=== PATIENT | female | born 1950 | race Caucasian/White ===

== ENCOUNTER 2017-07-21 10:23 | Emergency (ER) | payer MEDICARE, BC, MEDICAID ==
[~2017-07-21] VITALS: Ht 5367.7 cm; Wt 90.0 kg
[2017-07-21 10:32] VITALS: BP 115/73
[2017-07-21] MEDS ORDERED: HYDROcodone/acetaminophen 5mg/325mg tablet PO ONE (11:35)
[2017-07-21] MEDS ORDERED: HYDR-569 PO (11:35)
== END 2017-07-21 13:18 | disposition home or self-care (01) ==
LOC: ER 10:23
DX: S86.002A Unspecified injury of left Achilles tendon, initial encounter (principal); Z88.0 Allergy status to penicillin; W18.30XA Fall on same level, unspecified, initial encounter; Y93.89 Activity, other specified; Y92.89 Other specified places as the place of occurrence of the external cause; Y99.8 Other external cause status
CPT/HCPCS: 73610; 99284; A6449

== ENCOUNTER 2021-07-18 10:44 | Emergency (ER) | payer MEDICARE, MEDICAID ==
[~2021-07-18] VITALS: Ht 162.6 cm; Wt 67.4 kg
[~2021-07-18 10:44] MED LIST: HYDR-4383 PO
[2021-07-18 13:08] VITALS: BP 146/89
--- NOTE | 2021-07-18 13:29 | NUR ---
PER LAB, PT IS REFUSING ORDERED BLOOD DRAW. ATTEMPTED TO EXPLAIN THAT THE BLOOD DRAW IS PART OF THE PT EVALUATION, PT IS ARGUMENTITIVE AND STATES THAT SHE NEVER HAD TO HAVE BLOOD DRAWN FOR AN ENEMA. PROVIDER HAS BEEN NOTIFIED Addendum: 07/18/21 at 1340 by GABRIELLA PT CHANGED MIND AND HAS ALLOWED LAB WORK TO BE DRAWN ORDERED BEFORE PROVIDER COULD BE NOTIFIED.
== END 2021-07-18 15:37 | disposition home or self-care (01) ==
LOC: ER 10:44
DX: K59.00 Constipation, unspecified (principal); E78.00 Pure hypercholesterolemia, unspecified; Z90.710 Acquired absence of both cervix and uterus; Z88.0 Allergy status to penicillin; Z79.899 Other long term (current) drug therapy
CPT/HCPCS: 99282; 99283

== ENCOUNTER 2022-02-07 07:53 | Observation (INO) | payer BC, MEDICAID ==
[~2022-02-07] VITALS: Ht 162.6 cm; Wt 79.2 kg
[2022-02-07] MEDS ORDERED: LIDOcaine 1% 30ml preserv. free vial IJ ONE (09:00)
[2022-02-07] MEDS ORDERED: TETanus/Pertussis (Acell)/Diphther VAC/PF (Tdap-Adult) 0.5ml syringe IMVAC ONE (09:00)
[2022-02-07 09:13] LABS: BASOPHILS % (AUTO) 0.6 % (0-1); EOSINOPHILS # (AUTO) 0.1 X10'3 (0-0.9); EOSINOPHILS % (AUTO) 2.1 % (0-6); HEMATOCRIT 43.5 % (35.0-45.0); HEMOGLOBIN 14.4 g/dl (12.0-16.0); LYMPHOCYTES # (AUTO) 1.4 X10'3 (1.1-4.8); LYMPHOCYTES % (AUTO) 21.6 % (21-51); MEAN CORPUSCULAR HEMOGLOBIN 30.9 PG (27.0-31.0); MEAN CORPUSCULAR HGB CONC 33.2 g/dL (33.0-36.5); MEAN CORPUSCULAR VOLUME 93.2 FL (78-98); MEAN PLATELET VOLUME 8.2 FL (7.4-10.4); MONOCYTES # (AUTO) 0.3 X10'3 (0-0.9); MONOCYTES % (AUTO) 4.3 % (2-12); NEUTROPHILS # (AUTO) 4.6 X10'3 (1.8-7.7); NEUTROPHILS % (AUTO) 71.4 % (42-75); PLATELET COUNT 185 X10'3 (140-440); RED BLOOD COUNT 4.67 X10'6 (4.20-5.60); RED CELL DISTRIBUTION WIDTH 15.3 % (11.5-14.5); WHITE BLOOD COUNT 6.5 X10'3 (4.5-11.0)
[2022-02-07 09:41] LABS: ALANINE AMINOTRANSFERASE 23 U/L (12-78); ALBUMIN 3.4 G/DL (3.4-5.0); ALBUMIN/GLOBULIN RATIO 0.9 (1.1-1.5); ALKALINE PHOSPHATASE 37 IU/L (46-116); ANION GAP 10 (8-16); BILIRUBIN,TOTAL 0.6 MG/DL (0.1-1.0); BLOOD UREA NITROGEN 8 MG/DL (7-18); CALCIUM 9.5 MG/DL (8.5-10.1); CHLORIDE 105 MMOL/L (99-107); CREATININE 0.73 MG/DL (0.40-0.90); GLUCOSE 96 MG/DL (70-104); SODIUM 140 MMOL/L (135-145); TOTAL CARBON DIOXIDE 25.5 MMOL/L (24-32); TOTAL PROTEIN 7.2 G/DL (6.4-8.2); eGFR 78 ML/MIN
[2022-02-07 10:03] LABS: ASPARTATE AMINO TRANSFERASE 22 U/L (10-37); POTASSIUM 4.7 MMOL/L (3.5-5.1)
[2022-02-07] MEDS ORDERED: ethyl chloride 103.5ml spray TP ONE (10:20)
[2022-02-07] MEDS ORDERED: ondansetron 4mg rapidly disintigrating tab PO ONE (11:05)
[2022-02-07] MEDS ORDERED: LIDOcaine Viscous 15ml cup MM ONE (11:45)
[2022-02-07] MEDS ORDERED: HYDROcodone/acetaminophen 5mg/325mg tablet PO ONE (11:45)
[2022-02-07] MEDS ORDERED: mag hydrox/Alum hydrox/simeth 30ml oral suspension PO ONE (11:45)
[2022-02-07] MEDS ORDERED: clindamycin phosphate 150mg/ml inj. IM ONE (13:10)
[2022-02-07] MEDS ORDERED: clindamycin 600mg/D5W 50ml 50 ML IV ONE (13:15)
[2022-02-07] MEDS ORDERED: aspirin 325mg tablet PO ONE (13:15)
[2022-02-07] MEDS ORDERED: nitroGLYCERIN 0.2mg/hour patch TD ONE (13:20)
[2022-02-07] MEDS ORDERED: metoclopramide 5 mg/ml inj IV PRN (14:25)
[2022-02-07] MEDS ORDERED: nitroGLYCERIN 0.4mg SUBLingual tab SL PRN (14:25)
[2022-02-07] MEDS ORDERED: POTASSIUM BICARB 20meq eff tab 20 MEQ TABLET.EFF PO PRN ×2 (14:25)
[2022-02-07] MEDS ORDERED: magnesium hydroxide 30ml (MOM) UD suspension PO PRN (14:25)
[2022-02-07] MEDS ORDERED: ondansetron/PF 4mg/2ml inj IV PRN (14:25)
[2022-02-07] MEDS ORDERED: bisacodyl 10mg suppository rectal RC PRN (14:25)
[2022-02-07] MEDS ORDERED: mag hydrox/Alum hydrox/simeth 30ml oral suspension PO PRN ×2 (14:25)
[2022-02-07] MEDS ORDERED: metoprolol tartrate 1mg/ml inj IV PRN (14:25)
[2022-02-07] MEDS ORDERED: acetaminophen 650mg rectal suppository RC PRN (14:25)
[2022-02-07] MEDS ORDERED: magnesium Cl slow-release 64mg tablet PO PRN (14:25)
[2022-02-07] MEDS ORDERED: regadenoson 0.4mg/5ml syringe IV PRN (14:25)
[2022-02-07] MEDS ORDERED: HYDROcodone/acetaminophen 5mg/325mg tablet PO PRN (14:25)
[2022-02-07] MEDS ORDERED: acetaminophen 325mg tablet PO PRN ×2 (14:25)
[2022-02-07] MEDS ORDERED: PERFLUTREN PROTEIN-A MICROSPHR (Optison) 0.22 MG/ML 3ML VIAL IV ONE (14:25)
[2022-02-07] MEDS ORDERED: morphine 2 MG/ML inj. syringe IV PRN ×2 (14:25)
[2022-02-07] MEDS ORDERED: diphenhydrAMINE 25mg capsule PO PRN (14:25)
[2022-02-07] MEDS ORDERED: ondansetron 4mg rapidly disintigrating tab PO PRN (14:25)
[2022-02-07] MEDS ORDERED: magnesium 4gm in 100ml NS 100 ML IV PRN (14:25)
[2022-02-07] MEDS ORDERED: aminophylline 500mg/20ml vial IV PRN (14:25)
[2022-02-07] MEDS ORDERED: diphenhydrAMINE 50 mg/ml inj IV PRN (14:25)
[2022-02-07] MEDS ORDERED: potassium CL 10mEq/100ml bag 100 ML IV PRN (14:25)
[2022-02-07] MEDS ORDERED: magnesium 2GM in 50ml NS 50 ML IV PRN (14:25)
[2022-02-07] MEDS: normal saline 1000ml 1,000 ML IV SCH (14:54)
[2022-02-07 15:18] LABS: MAGNESIUM 1.8 MG/DL (1.5-2.4); POTASSIUM 3.9 MMOL/L (3.5-5.1)
[2022-02-07] MEDS ORDERED: ATOR40TA72 PO (15:40)
[2022-02-07] MEDS ORDERED: OMEP20CA16 PO (15:40)
[2022-02-07] MEDS ORDERED: ALBU17AE26 PO (15:40)
[2022-02-07] MEDS ORDERED: HYDR-3972 PO (15:40)
[2022-02-07] MEDS ORDERED: DICL100G30 TOP (16:08)
[2022-02-07] MEDS ORDERED: HYDROcodone/acetaminophen 10/325mg tab PO PRN (17:30)
[2022-02-07] MEDS ORDERED: albuterol 2.5 MG/3 ML nebule NEB PRN (17:40)
[2022-02-07 18:00] VITALS: BP 141/88
--- NOTE | 2022-02-07 18:10 | NUR ---
Patient in room PCU 3012. I have received report from Lula FISHMAN and had the opportunity to ask questions and assume patient care.
--- NOTE | 2022-02-07 18:32 | NUR ---
Pt arrived from ED at 1745, part of admission completed, will endorse to shift engineer remaining tasks. Pt very sleepy during admission questions. Problems reprioritized. Patient report given, questions answered & plan of care reviewed with KYE Parada.
[2022-02-07] MEDS: docusate sod 100mg capsule PO SCH (19:46)
[2022-02-07] MEDS: HYDROcodone/acetaminophen 10/325mg tab PO PRN (19:46)
[2022-02-07] MEDS ORDERED: enoxaparin 40mg/0.4ml syringe SQ SCH (20:00)
[2022-02-07] MEDS: K and/or MAG REPLACEMENT MC SCH (20:00)
[2022-02-07] MEDS ORDERED: atorvastatin 20mg tablet PO SCH (21:00)
[2022-02-07] MEDS ORDERED: temazepam 15mg capsule PO PRN (21:00)
[2022-02-07 22:00] VITALS: BP 94/64
[2022-02-08] VITALS (9 sets, daily range): BP systolic 99–136; BP diastolic 63–79
--- NOTE | 2022-02-08 05:57 | NUR ---
REVIEWED GRAPHIC MANAGER ASSESSMENTS AND IN AGREEMENT.
--- NOTE | 2022-02-08 06:10 | NUR ---
Problems reprioritized. Patient report given, questions answered & plan of care reviewed with Lula RN.
[2022-02-08 07:22] LABS: BASOPHILS % (AUTO) 0.6 % (0-1); EOSINOPHILS # (AUTO) 0.2 X10'3 (0-0.9); EOSINOPHILS % (AUTO) 3.5 % (0-6); HEMATOCRIT 41.1 % (35.0-45.0); HEMOGLOBIN 13.8 g/dl (12.0-16.0); LYMPHOCYTES # (AUTO) 1.7 X10'3 (1.1-4.8); LYMPHOCYTES % (AUTO) 32.8 % (21-51); MEAN CORPUSCULAR HEMOGLOBIN 30.9 PG (27.0-31.0); MEAN CORPUSCULAR HGB CONC 33.7 g/dL (33.0-36.5); MEAN CORPUSCULAR VOLUME 91.8 FL (78-98); MEAN PLATELET VOLUME 8.5 FL (7.4-10.4); MONOCYTES # (AUTO) 0.3 X10'3 (0-0.9); MONOCYTES % (AUTO) 5.8 % (2-12); NEUTROPHILS % (AUTO) 57.3 % (42-75); PLATELET COUNT 181 X10'3 (140-440); RED BLOOD COUNT 4.48 X10'6 (4.20-5.60); RED CELL DISTRIBUTION WIDTH 15.5 % (11.5-14.5); WHITE BLOOD COUNT 5.3 X10'3 (4.5-11.0)
[2022-02-08 07:44] LABS: ALANINE AMINOTRANSFERASE 17 U/L (12-78); ALBUMIN 3.2 G/DL (3.4-5.0); ALBUMIN/GLOBULIN RATIO 0.9 (1.1-1.5); ALKALINE PHOSPHATASE 32 IU/L (46-116); ANION GAP 12 (8-16); ASPARTATE AMINO TRANSFERASE 14 U/L (10-37); BILIRUBIN,TOTAL 0.6 MG/DL (0.1-1.0); BLOOD UREA NITROGEN 12 MG/DL (7-18); BUN/CREATININE RATIO 15.8 (6.6-38.0); CALCIUM 8.6 MG/DL (8.5-10.1); CHLORIDE 105 MMOL/L (99-107); CHOL/HDL RATIO 4.5 (0.00-4.99); CHOLESTEROL 237 MG/DL (0-200); CREATININE 0.76 MG/DL (0.40-0.90); GLUCOSE 92 MG/DL (70-104); HDL CHOLESTEROL 53 MG/DL (35-60); LDL CHOLESTEROL 151 MG/DL (50-100); SODIUM 141 MMOL/L (135-145); TOTAL CARBON DIOXIDE 23.6 MMOL/L (24-32); TOTAL PROTEIN 6.6 G/DL (6.4-8.2); TRIGLYCERIDES 135 MG/DL (20-135); eGFR 75 ML/MIN
[2022-02-08 07:47] LABS: POTASSIUM 4.2 MMOL/L (3.5-5.1)
[2022-02-08 07:51] LABS: H PYLORI ANTIBODY NEGATIVE (Neg)
[2022-02-08] MEDS ORDERED: aspirin 325mg tablet PO SCH (08:30)
[2022-02-08] MEDS: docusate sod 100mg capsule PO SCH (08:36)
[2022-02-08] MEDS: normal saline 1000ml 1,000 ML IV SCH ×2 (08:36→10:25)
[2022-02-08] MEDS: K and/or MAG REPLACEMENT MC SCH (08:37)
[2022-02-08] MEDS: HYDROcodone/acetaminophen 10/325mg tab PO PRN (08:43)
[2022-02-08] MEDS ORDERED: CLIN-97 PO (13:28)
--- NOTE | 2022-02-08 15:22 | NUR ---
Pt completed US abd and stress test this morning. MD Naranjo viewed results, ok'd for discharge. PIV and telemonitor removed. Pt wheeled down to main entrance with all belongings. Discharge packet reviewed, answered all questions. Pt took all belongings. Finger dressing changed.
== END 2022-02-08 15:48 | disposition home or self-care (01) ==
LOC: ER 07:53 → ED HOLD 14:31 → PCU 3S 17:22
PROVIDERS: ADMIT Family Medicine; ATTEND Family Medicine
DX: I20.9 Angina pectoris, unspecified (principal); R10.11 Right upper quadrant pain; F14.90 Cocaine use, unspecified, uncomplicated; F17.210 Nicotine dependence, cigarettes, uncomplicated; E78.00 Pure hypercholesterolemia, unspecified; J45.909 Unspecified asthma, uncomplicated; G89.4 Chronic pain syndrome; J44.9 Chronic obstructive pulmonary disease, unspecified; L03.012 Cellulitis of left finger; M19.90 Unspecified osteoarthritis, unspecified site; Z90.710 Acquired absence of both cervix and uterus; Z88.0 Allergy status to penicillin; Z79.899 Other long term (current) drug therapy; Z23 Encounter for immunization
CPT/HCPCS: 36415; 71046; 71250; 73140; 76700; 78452; 80053; 80061; 83735; 83880; 84132; 84484; 85025; 86677; 87081; 90471; 90715; 93005; 93017; 93306; 96361; 96365; 96372; 99285; A6222; A9500; G0378; J1650; J2785; J3490; J7030; A6260; A6449